=== PATIENT | female | born 1960 | race Caucasian/White ===

== ENCOUNTER → 2018-02-06 15:55 | Outpatient (CLI) | payer OTHER, SELFPAY ==
--- NOTE | 2018-02-06 16:06 | DI.REPORT_ITS ---
SYMPTOMS/DIAGNOSIS: KNEE PAIN, S83.207A, LIKELY MENISCAL TEAR, PLEASE RULE OUT A LOOSE BODY LEFT KNEE: There is perhaps subtle narrowing of the medial tibiofemoral joint compartment. There is mild hypertrophic spurring involving the patella and a small spur is identified at the insertion of the quadriceps on the superior patellar pole. There is no evidence of a loose joint body. SUMMARY: Mild degenerative changes are identified.
== END ==
PROVIDERS: PCP Nurse Practitioner; Visit Provider Family Medicine
DX: M25.562 Pain in left knee (principal); S83.207A Unspecified tear of unspecified meniscus, current injury, left knee, initial encounter; M17.12 Unilateral primary osteoarthritis, left knee; M76.52 Patellar tendinitis, left knee
CPT/HCPCS: 73562

== ENCOUNTER 2018-02-26 15:33 | Outpatient (RCR) | payer OTHER, SELFPAY ==
--- NOTE | 2018-02-26 13:06 | IE_ITS ---
Date: February 26, 2018 Referring: Dr. Angélica Heaton Diagnosis: Acute L medial meniscal tear P.T. Diagnosis: Same SUBJECTIVE: History of Present Illness: Melissa presents with complaints of insidious onset L knee pain. She states that she does a great deal of running and walking on the [address] at [facility].She had been performing her normal routine, when she noticed significant swelling developing in the L knee about 5 weeks ago. She is unable to identify any immediate injury or exacerbating event;however, states that she had severe swelling extending down to the level of the ankle. She saw her drAditi and began wearing a compression stocking and a knee brace, after which her swelling improved. She continues to have pain and clicking in the knee, as well as a small amount of swelling. She reports pain with any amount of twisting to the knee or fully straightening it. She does describe a sensation of the knee locking and feels as though she cant trust it. Pain Ratin/10 Pain Location: Medial joint line extending to the anterior L knee. Prior Level of Function: Active and independent. Pt performs a run/walk program several days/week up [facility]. She also has a strengthening regimen she performs with this including squats and LE strengthening. She mountain bikes , skis, etc...She works full-time as an R.N./food consultant. Current Level of Function: Pt has been self limiting her activity, stating that she is afraid she will irritate the knee.She is no longer performing her walking and running program.She has been too nervous to try biking. She reports pain with prolonged walking. Reports an inability to squat down to the floor and struggles with going up and down stairs. Previous Treatment: Pt has been utilizing a brace and taking Motrin with some moderate relief. Comorbidities: Osteoporosis. Falls in the last year: __X__ No Reported hospitalizations in the last year - __X__ No Medications: Alendronate and calcium vitamin D. Quality of Life: __X__ Good Standardized Measures: LEFS score: __50% deficit__ OBJECTIVE: Posture: Pt has good upright posturing. She lacks about 10 degrees terminal knee extension on the L. With cues, she is able to demonstrate full knee extension, although with increase in pain. Gait: Shows mild antalgia with decreased stance time on the L as compared to the R. She does demonstrate protective positioning of the LLE with bed mobility , avoiding full knee extension. In sitting position, she rests with the knee slightly extended. Edema: Pt has a mild joint effusion noted on the L and positive Otero's cyst. ROM: Hip ROM full and pain free L knee actively allows -5 to 125 degrees flexion; with overpressure, she tolerates 0-135 with end range pain into both flexion and extension. With passive motion, she has palpable clunking in the knee, which is pain reproducing. Joint Accessory Motion: Patellar mobility WNL. Tibiofemoral joint mobility shows mild hypomobility. Strength: Hip flexion 5/5 bilaterally Quads 5/5 R, 4/5 L with visible atrophy noted through the quadriceps. Hamstrings 4+/5 R, 4/5 L Hip IR 4/5 L ER 4/5 L Neuro: Dermatomes and myotomes WNL. DTRs not assessed. Balance: Pt requires UE support for single leg standing on the L. She is able to do so without support on the R. Special Tests: Pt has a positive Thessaly test on the L for pain reproduction.She is functionally unable to return to standing position from a deep squat without UE support. She has negative varus and valgus stress test. Negative anterior drawer. Positive Venu test for audible clunk and pain reproduction. Treatment: Today's session consisted of evaluation followed by instruction in an early HEP as found in scanned documents. Pt also received kinesio taping to the L knee for edema management and proprioceptive input. IE: [id number] Direct treatment time: 60 min Total treatment time: 60 min ASSESSMENT: Patient is a 57-year-old female, referred for PT services with the diagnosis of L medial meniscal tear. Patient presents with clinical signs and symptoms consistent with diagnosis with persistent L knee pain and joint effusion with suspected internal derangement. She has made significant gains since onset of pain with improved management of edema and improvements in comfort.She does, however, demonstrate quad atrophy and functional weakness, resulting from persistent symptoms. She requires PT intervention to address these issues and maximize mobility; however, if symptoms aren't improving over the next several weeks, will likely recommend orthopaedic consult at that time. Pt would like to avoid this if, at all, possible. She currently demonstrates the following impairment level findings: decreased LLE strength, quad atrophy, joint effusion , joint hypomobility, pain. Impairments are contributing to the following functional limitations: unable to perform normal exercise program, unable to squat to the floor for normal household activities, difficulty tolerating prolonged ambulation, pain with stair management, decreased overall LE function as indicated LEFS score of 50% deficit. Patient is assessed as: __X__ Moderate 95747 complexity, based on the following : History: (list): Insidious onset knee pain with suspected internal derangement in otherwise healthy and active 57 yo female with history of osteoporosis. Examination: (list): X See above for functional limitations and impairments. Presentation: X Evolving Decision-Making: X Moderate complexity 50 % Disability based on LEFS __X__ Patient requires skilled PT intervention to remediate the above functional limitations to return to: __X__ Premorbid level of function __X__ Return to full functional mobility __X__ Return to work demands __X__ Improve QOL Prognosis: __X__ Good STG: __6__ weeks. 1. Full ROM L knee. 2. Full terminal knee extension, allowing for non-antalgic gait. 3. Pt able to tolerate introduction of open and closed chain stretching activities without exacerbation of symptoms. LTG: __12__ weeks. 1. Pt able to resume her normal exercise program. 2. Pt able to reciprocally ascend and descend stairs without pain. 3. Improve overall function as indicated by LEFS score indicating less than 20% deficit. PLAN: Patient to be seen 1 x per week, for 12 weeks, adjusting frequency of visits per patient symptoms and response to treatment. Program will be primarily therapeutic exercise based for improved LE strength to better support the L knee. She will be instructed in both open and closed strengthening activities and will begin incorporating proprioceptive retraining activities as she is able to tolerate. Will include manual therapies, particularly for management of swelling and improved joint mobility to include joint mobilizations to the tibiofemoral and patellofemoral joints. Use of IASTM for neuromodulation for surrounding musculature and continued use of kinesio taping techniques. Thank you for this referral. Please do not hesitate to contact me with any questions or concerns regarding this patient's plan of care. SS/fw
== END 2018-02-28 23:59 | disposition home or self-care (01) ==
LOC: PT 15:33
PROVIDERS: Referring Provider Family Medicine; Visit Provider Family Medicine
DX: S83.242D Other tear of medial meniscus, current injury, left knee, subsequent encounter (principal)
CPT/HCPCS: 97162

== ENCOUNTER 2018-11-28 01:20 | Outpatient (CLI) | payer OTHER, SELFPAY ==
--- NOTE | 2018-11-28 07:30 | DI.MAMMO_ITS ---
SYMPTOM/DIAGNOSIS: SCREENING MAMMOGRAMS: Mammograms were interpreted according to the usual protocol including computer analysis with CAD system, tomosynthesis and C view imaging. Comparison is made with prior examinations. Breast density, Category D. No suspicious masses or microcalcifications are seen. There is no definite evidence of malignancy. IMPRESSION: Negative mammogram. Routine screening is recommended. Category 1. MQSA ASSESSMENT OF FINDINGS: Negative. Category 1. Patient will receive a letter notifying them of these results. BI-RADS category D. The breasts are extremely dense, which lowers the sensitivity of mammography.
== END 2018-11-28 01:40 ==
PROVIDERS: PCP Family Medicine; Visit Provider Nurse Practitioner Family
DX: Z12.31 Encounter for screening mammogram for malignant neoplasm of breast (principal)
CPT/HCPCS: 77063; 77067

== ENCOUNTER 2019-05-06 09:53 | Outpatient (CLI) | payer OTHER, SELFPAY ==
--- NOTE | 2019-05-06 14:56 | DI.MAMMO_ITS ---
EXAM: MG MAMMO DIAGNOSTIC UNI AND US BREAST RT LIMITED CLINICAL HISTORY: TENDER RIGHT BREAST LUMP, N63.10 TECHNIQUE: Ultrasound performed using standard protocol. COMPARISON: 11/28/18, 08/12/17, 07/04/16 FINDINGS: Right breast mammogram and right breast ultrasound are interpreted conjunction. These examinations w ere obtained to evaluate a question of palpable abnormality of the upper inner quadrant of the right breast. Breast is of high density. No discrete mass identified mammographically. No ultrasonograph ically identified mass or cyst. IMPRESSION: No specific evidence of malignancy at this time. I have suggested routine screening examinations resu me with a bilateral mammogram in October 2019. Category 1, breast density category D. BI-RADS Cat 1 - Negative Breast Density - Category D - Extremely dense
== END 2019-05-06 10:13 ==
PROVIDERS: PCP Family Medicine; Visit Provider Nurse Practitioner Family
DX: N63.12 Unspecified lump in the right breast, upper inner quadrant (principal)
CPT/HCPCS: 76642; 77061; 77065; G0279

== ENCOUNTER 2019-09-17 15:20 | Outpatient (REF) | payer OTHER, SELFPAY ==
--- NOTE | 2019-09-17 15:00 | ENDOMET_PTH ---
PATIENT: Melissa North LOC: [facility] U#:[id number] AGE/SX: 59/F ROOM: RE09/17/[address]: Carin Akins : 1960 BED: DIS: 09/17/2019 SPEC #: [id number] RECD: 09/17/19 17:15 STATUS: YOLANDA REQ #: [id number] INES: 09/17/19 15:[address]: Carin Akins DEPT: Surgical Specimen RECD BY: Sheila Pino ENTERED: 09/17/19 17:16 SP TYPE: Endomet OTHR DR: Mike Lindsay DO Tissues: 1 - ENDOMETRIUM BX/CURRETTE Procedures: GROSS AND MICRO LEVEL 4 Comments: [id number]
== END 2019-09-17 15:40 ==
LOC: LBN 15:20
PROVIDERS: PCP Family Medicine; Visit Provider Obstetrics & Gynecology Gynecology
DX: N80.1 Endometriosis of ovary (principal); N95.0 Postmenopausal bleeding
CPT/HCPCS: 88305

== ENCOUNTER 2019-10-20 00:44 | Outpatient (CLI) | payer OTHER, SELFPAY ==
--- NOTE | 2019-10-20 07:30 | DI.DEXA_ITS ---
EXAM: XR DEXA BONE DENSITY W/WO PENELOPE CLINICAL HISTORY: on HRT and Bisphosphonates,osteoporosis, m81.0 TECHNIQUE: [employer] C densitometer was utilized. COMPARISON: 2012 and 2015 FINDINGS: The PENELOPE image shows no evidence of compression fractures. The bone mineral density measurements of the lumbar spine correspond to a total T-score of -1.6, in the osteopenic range. This is not signif icantly changed from 2016 and represents a 9..0 percent increase when compared with 2013. 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 This represents an 8 percent decrease when compared with 201 6 but is not changed from 2013. The bone mineral density measurements of the left forearm correspond to a total T-score of -2.6 and a T-score of the distal 3rd of -1.8, in the osteopenic range. This r epresents a 5.9 percent decrease when compared with 2016 and a 4.5 percent decrease when compared wit h 2013. IMPRESSION: Osteopenia of the lumbar spine and left forearm. Osteoporosis of the left hip.
== END 2019-10-20 01:04 ==
PROVIDERS: PCP Family Medicine; Visit Provider Obstetrics & Gynecology Gynecology
DX: M81.0 Age-related osteoporosis without current pathological fracture (principal); M85.88 Other specified disorders of bone density and structure, other site
CPT/HCPCS: 77080

== ENCOUNTER 2020-01-19 01:16 | Outpatient (CLI) | payer OTHER, SELFPAY ==
--- NOTE | 2020-01-19 13:45 | DI.MAMMO_ITS ---
EXAM: MG MAMMO SCREENING CLINICAL HISTORY: screening,Z12.39 TECHNIQUE: Bilateral full field digital CC and MLO mammographic images were obtained with 3D tomosyn thesis and utilizing computer aided detection (CAD). COMPARISON: Available for comparison. FINDINGS: Masses/Architectural Distortion: None seen. Microcalcifications: No suspicious pleomorphic-type are seen. Skin Thickening/Nipple Retraction: None. IMPRESSION: 1. No significant interval change with no specific features of malignancy noted. 2. Unless there is more urgent need, screening mammography is recommended, as per [employer] guidelines. BI-RADS Category 1 - Negative Breast Density - Category D - Extremely dense The mammogram demonstrates the patient's breast tissue is dense. Dense breast tissue is very common a nd is not abnormal but dense breast tissue can make it harder to find cancer on a mammogram. Also, de nse breast tissue may increase their breast cancer risk. This information about the result of the [facility] mogram report was provided to the patient to raise their awareness. Use this report when you speak wi th the patient about their risks for breast cancer, which includes their family history. At that time , you may recommend for more screening tests (Ultrasound or MRI) as they might be useful based on the ir risk. A negative radiographic report should not delay biopsy if a dominant or clinically suspicious mass is present. Up to ten percent of cancers are not identified on mammography. A negative report may reinforce clinical impression. Adenosis and dense breasts may obscure an underlying neoplasm. False positive reports average 6 to 10%. Patient will receive a letter notifying them of these results.
== END 2020-01-19 01:36 ==
PROVIDERS: PCP Family Medicine; Visit Provider Obstetrics & Gynecology Gynecology
DX: Z12.31 Encounter for screening mammogram for malignant neoplasm of breast (principal)
CPT/HCPCS: 77063; 77067

== ENCOUNTER 2020-01-26 03:31 | Outpatient (CLI) | payer OTHER, SELFPAY ==
[2020-01-27 11:12] LABS: Measles IgG Antibody Positive (See Note); Mumps Antibody IgG Positive (See Note); Rubella IgG Ab (UVM) Positive (See Note); Varicella IgG Antibody Positive (See Note)
== END 2020-01-26 03:51 ==
PROVIDERS: PCP Family Medicine; Visit Provider Family Medicine
DX: Z02.89 Encounter for other administrative examinations (principal)
CPT/HCPCS: 36415; 86787; 86735; 86762; 86765

== ENCOUNTER 2020-09-14 17:43 | Outpatient (REF) | payer OTHER, SELFPAY ==
--- NOTE | 2020-09-14 16:00 | PAPFT_PTH ---
PATIENT: Melissa North LOC: [facility] U#:[id number] AGE/SX: 60/F ROOM: RE09/14/[address]: Linnette Terrazas NP : 1960 BED: DIS: 09/14/2020 SPEC #: [id number] RECD: 09/14/20 18:17 STATUS: YOLANDA REQ #: [id number] INES: 09/14/20 16:[address]: Mk MCNEIL,Linnette DEPT: [facility] Cytology RECD BY: Sheila Pino ENTERED: 09/14/20 18:17 SP TYPE: PAPFT OTHR DR: Mike Lindsay, DO Tissues: 1 - CX/ENDOCX FOR PAP SMEARS Procedures: PAP THIN PREP/UVM Screening HPV DNA PROBE Comments: [id number] (CHLAMYDIA/GC)
[2020-09-15 13:58] LABS: Chlamydia Result Negative (Negative); GC Result Negative (Negative)
== END 2020-09-14 17:44 | disposition home or self-care (01) ==
LOC: LBN 17:43
PROVIDERS: PCP Family Medicine; Visit Provider Nurse Practitioner Women's Health
DX: Z11.3 Encounter for screening for infections with a predominantly sexual mode of transmission (principal); Z12.4 Encounter for screening for malignant neoplasm of cervix; Z11.51 Encounter for screening for human papillomavirus (HPV)
CPT/HCPCS: 87491; 87591; 88142; 87624

== ENCOUNTER 2020-09-16 05:03 | Outpatient (CLI) | payer OTHER, SELFPAY ==
--- NOTE | 2020-09-16 08:45 | DI.US_ITS ---
EXAM: US ABDOMEN CLINICAL HISTORY: Evaluate for biliary pathology,ABD PAIN,R10.9 TECHNIQUE: Ultrasound abdomen performed using standard protocol. COMPARISON: No exams were available for comparison FINDINGS: LIVER: Normal size and echogenicity. A cyst is noted in the right lobe measuring 15 millimeters in d iameter. No suspicious masses... GALLBLADDER: No evidence of cholelithiasis. No evidence of wall thickening. No pericholecystic fluid identified. LYONS'S SIGN: Negative. BILIARY SYSTEM: No intrahepatic or extrahepatic biliary ductal dilation. KIDNEYS: Kidneys are symmetric in size. No evidence of renal calculi. No evidence of hydronephrosis. No renal mass or cyst identified. PANCREAS: Normal where visualized. SPLEEN: Not enlarged. ABDOMINAL AORTA AND IVC: Visualized portions normal caliber. ASCITES: None seen. IMPRESSION: Liver cyst. No gallbladder or biliary abnormality. DATA REPOSITORY:
== END 2020-09-16 05:23 ==
PROVIDERS: PCP Family Medicine; Visit Provider Family Medicine
DX: K76.89 Other specified diseases of liver (principal)
CPT/HCPCS: 76700

== ENCOUNTER 2021-02-06 10:26 | Day surgery (SDC) | payer OTHER, SELFPAY ==
--- NOTE | 2021-02-06 06:58 | COLE_ITS ---
Date of service: 02/06/21 Time of Service: 11:41 Colonoscopy Report Date of procedure: 02/06/21 Pre-op diagnosis general: Hx of colon polyps Post-op diagnosis procedure note: same (polyp) Procedure: Colonoscopy with polypectomy Surgeon: Abi Arroyo Anesthesia Type: General:No Airway (ASA 2/Dipesh Shipman CRNA) Estimated blood loss (mL): 2 Pathology: other (sigmoid polyp) Complications: None Disposition: same day Indications: The patient is here for Colonoscopy pre-op. Her last screening was in 2014 and was remarkable for tubular adenomatous polyps. She has no family history of colon cancer. She has not had any bowel habit changes. -Discussed colonoscopy bowel prep as well as the procedure. Discussed possible complications of the procedure to include bleeding, pain, perforation, missed small lesion/polyp, sore throat, aspiration and adverse reaction to the medications. Questions were answered to patient?s satisfaction. No guarantees were implied or given. She will purchase the bowel prep laxatives from the [employer] shop. She will hold her Vitamin D x 5 days prior to her procedure. Prep: Miralax/Dulcolax Procedure Start Time: 11:41 Procedure End Time: 12:00 Retraction Time: 13 minutes Findings: one small polyp Procedure Description: After informed consent was obtained the patient was taken to the procedure room and placed in a left decubitous position. Monitors were applied and a time out was done. The patients name, date of , procedure, allergies to medications and metal in their body was reviewed. The patient was then sedated. Once sedated and comfortable a rectal exam was done. External exam was normal. Internal exam revealed a normal sphincter tone and no palpable masses. The scope was then introduced and retro-flexed. No internal hemorrhoids, polyps or masses were identified on retro-flexion. The scope was then advanced to the cecum without difficulty. The ileocecal vlave and appendiceal orifice were identified. The prep was good. The scope was then slowly retracted over 13 min utes back into the rectum. Polyps were removed with cold forceps in the sigmoid colon. There was no diverticulosis noted. The scope was removed and the patient was woken up and taken back to Same day surgery in stable condition. The patient tolerated the procedure well and there were no immediate complications. Follow up: The patient should follow up in 5 years unless they develop changes in bowel habits or other new gastrointestinal complaints.
--- NOTE | 2021-02-06 07:01 | W.PM.DSUDISC ---
Discharge Plan Disposition Patient Disposition: HOME Condition: Good Discharge Details Reason For Visit: SCREENING,HX OF POLYPS Attending Provider: Abi Arroyo Primary Care Provider: Mike Lindsay Home Meds and New Rx's Prescriptions: Continued Estring 2 mg (7.5 mcg /24 hour) ring 1 vag ring VG 90 DAYS Qty: 1 RF: 3 estradiol-norethindrone acet 0.05-0.25 mg/24 hr patch semiweekly 1 patch TD .COMPLEX Qty: 8 RF: 5 cholecalciferol (vitamin D3) 1,000 UNIT tablet 1,000 unit PO DAILY RF: 0 calcium carbonate 600 MG tablet 1,200 mg PO DAILY RF: 0 alendronate 35 mg tablet 35 mg PO QWEEK Qty: 16 RF: 4 Discharge Instructions Additional Instructions: Findings: one small polyp Follow up: 5 years Please call if you develop: fevers >101.5 Nausea or Vomiting Abdominal pain that is not transient Rectal bleeding that is more then a tbsp A hard abdomen and inability to pass gas DAY SURGERY UNIT POST ENDOSCOPY INSTRUCTIONS Instructions for everyone who is given Anesthesia: For your safety, please do the following for the next 24 Hours: a. Do not drive or operate dangerous equipment b. Do not drink alcohol beverages or use any recreational drugs for the first 24 hours or while taking pain medications. The medications in your body may have a reaction that can be dangerous. c. Do not make any important decisions or sign any important papers 1. Generally there are no restrictions on your activity after a day or so has gone by, but you may feel a bit fatigued for a few days. 2. After you arrive home you may have a light meal and return to a normal diet as you can tolerate it without feeling sick to your stomach. 3. After surgery, you may feel pain or discomfort. This should be only transient, but if it persists please contact your doctor. 4. If there are any questions regarding the findings of your procedure, please feel free to contact your doctor. 6. If you are unable to contact your doctor with a problem, contact the hospital at [phone]. 7. Continue all your regular medications unless directed otherwise. I understand the above instructions and have no questions. Signature of Patient or Responsible Adult Escort Date/Time Name of Responsible Adult Escort Signature of Nurse Date/Time Activity:: Activity as Tolerated Diet:: As Tolerated Discharge Orders Discharge Orders: Discharge Order (Routine); Ordered 02/06/21 Ordered By: Abi Arroyo
[2021-02-06 10:34] VITALS: BP 126/76; PULSE 67; RESP 18; TEMP 36.4; O2SAT 100
[2021-02-06] MEDS: Lactated Ringers 1,000 ML 80 ML IV (10:55)
--- NOTE | 2021-02-06 10:56 | W.ANESPRE ---
General Info Date of Service Date Performed: 02/06/21 Height: 5 ft 4 in Weight: 53.5 kg Body Mass Index (BMI): 20.2 Surgical Procedure: Operation Date: 02/06/21 12:05 Proposed Procedures Side Surgeon p Colonoscopy Abi Arroyo MD Meds Allergies and Home Medications Allergies Allergy/AdvReac Type Severity Reaction Status Date / Time No Known Drug Allergies Allergy Verified 02/06/21 10:38 Home Medication Medication Instructions Recorded cholecalciferol (vitamin D3) 1,000 unit PO DAILY 12/10/13 calcium carbonate 1,200 mg PO DAILY 02/06/18 estradiol 1 vag ring VG 90 DAYS #1 each 09/14/20 estradiol 0.05 mg-norethindrone 1 patch TD .COMPLEX #8 each 09/14/20 0.25 mg/24 hr semiwkly transderm patch alendronate 35 mg tablet 35 mg PO QWEEK #16 tab 01/31/21 Current Visit Medications: Current Medications Generic Name Dose Route Start Last Admin Trade Name Freq PRN Reason Stop Dose Admin Hyoscyamine Sulfate 0.125 mg 02/06/21 07:02 Hyoscyamine 0.125 Mg Sl/Oral/Chew SL DIRECTED PRN Ringer's Solution 1,000 mls @ 80 mls/hr 02/06/21 06:00 02/06/21 10:55 IV 03/05/21 23:59 80 mls/hr INFUSION MAGUI Administration IV Miscellaneous Supplies 1 each 02/06/21 06:00 Iv Access IV 03/05/21 23:59 DIRECTED MAGUI Ondansetron HCl 4 mg 02/06/21 07:02 Ondansetron 4 Mg/2 Ml Vial IVP Q4H PRN PRN Nausea / Vomiting Sodium Chloride 0 ml 02/06/21 06:00 Normal Saline Flush 10 Ml Syr IV 03/05/21 23:59 PRN PRN Sodium Chloride 0 ml 02/06/21 06:00 Normal Saline 10 Ml Vial IJ 03/05/21 23:59 DIRECTED PRN Sterile Water 0 ml 02/06/21 06:00 Water,Injection,Sterile 10 Ml Vial IJ 03/05/21 23:59 DIRECTED PRN PFSH Active Problems Active Problems: Problem Status Onset Code Tubular adenoma of colon 07/09/14 D12.6 Osteoporosis 08/28/14 M81.0 Hormone replacement therapy 10/26/15 Z79.890 Retinal detachment H33.20 Vitreous degeneration, bilateral H43.813 Screening for colon cancer Z12.11 Postmenopausal bleeding Medical History Medical History Closed nondisplaced fracture of greater tuberosity of left humerus (04/06/16) Depressive disorder (02/16/13) Detached retina, bilateral Hormone replacement therapy started 05/2015 for osteoporosis. Pt intol of Aledronate. 09/2015 PMB despite dose adjustment. EMBx nl. Osteoporosis 2012 Pt had course ofAledronate, 05/2015. started HRT 2015 femoral neck T -2.6, spine T -1.5, L hip -2.4. 12/2015 Boniva initiated. Postmenopausal bleeding 09/17/2019 & 08/2015 while on HRT. No improvement with dose change. 08/2019 and 09/2015 EMBx proliferative. Benign. Tobacco Smoking/Tobacco Use Status: Never Alcohol Alcohol Intake: current Alcohol intake frequency: 0-2 drinks per day Alcohol type: beer Substance Use Substance use: Never Substance use type: does not use Prental History History 3 Para 2 Hx # Term Pregnancies Multiple births Hx # Pregnancies Ectopic pregnancies AB induced Hx Number of Living Children AB spontaneous Vital Signs and Lab Results Vital Signs Most Recent Vital Signs in EMR: Most Recent Vital Signs Temp Pulse Resp BP Pulse Ox 36.4 C L 67 18 126/76 100 02/06/21 10:34 02/06/21 10:34 02/06/21 10:34 02/06/21 10:34 02/06/21 10:34 Lab Results Blood Type / Crossmatch: No Data to Display Complete Blood Count: No Data to Display Complete Metabolic Panel: No Data to Display Liver Function Panel: No Data to Display Coagulation Panel: No Data to Display Cardiac Panel: No Data to Display Arterial Blood Gas: No Data to Display Venous Blood Gas: No Data to Display Pancreas Panel: No Data to Display Thyroid Panel: No Data to Display Infectious Disease: No Data to Display Blood Cultures: No Data to Display Toxicology Panel: No Data to Display Anesthesia Assessment and Plan Anesthesia History Personal History: No History of Anesthesia Complications Family History: No Family History of Anesthesia Complications Exercise Tolerance Exercise Tolerance: Metabolic Equivalents>4 Pertinent Negatives Pertinent Negatives: No Symptoms of GERD, No Major Cardiovascular Symptoms or Complaints and No Major Pulmonary Symptoms or Complaints Cardiac & Pulmonary Exam Cardiac Exam: Normal S1/S2 Heart Sounds Pulmonary Exam: Clear Bilateral Breath Sounds Airway Exam Known Difficult Airway: No Mallampati Class: 2 Mouth Opening: Normal (> 3cm) Thyromental Distance: Greater than 3 cm Neck Range of Motion: Full ROM Neck Circumference: Normal Teeth Condition: Normal Dentition ASA Classification ASA Score: ASA 2 Emergency Case?: No NPO Status NPO Status: NPO Clears >2 hours, Solids >8 hours Anesthesia Plan Resuscitation Status: Full Code Anesthesia Technique: General Anesthesia Airway Planned: Natural Airway Monitors Used: Standard Monitors
[2021-02-06 11:00] VITALS: BMI 20.2
--- NOTE | 2021-02-06 11:59 | BOWEL_PTH ---
PATIENT: Melissa North LOC: [facility] U#:[id number] AGE/SX: 60/F ROOM: RE02/06/[address]: Abi Arroyo MD : [id number] BED: DIS: 02/06/2021 SPEC #: [id number] RECD: 02/06/21 12:58 STATUS: YOLANDA REQ #: [id number] INES: 02/06/21 11:[address]: Abi Arroyo DEPT: Surgical Specimen RECD BY: Sheila Pino ENTERED: 02/06/21 12:58 SP TYPE: Bowel OTHR DR: Mike Lindsay DO Tissues: 1 - BIOPSY BOWEL Procedures: GROSS AND MICRO LEVEL 4 Comments: [id number]
[2021-02-06 12:07] VITALS: BP 110/63; PULSE 66; RESP 14; TEMP 36.4; O2SAT 97
--- NOTE | 2021-02-06 12:29 | W.ANESPOSTOP ---
Postoperative Evaluation Date, Time and Location Date Performed: 02/06/21 Time Performed: 12:10 Patient Location: Day Surgery Unit Vital Signs Most Recent Imported Vital Signs: Most Recent Vital Signs Temp Pulse Resp BP Pulse Ox 36.4 C L 66 14 110/63 97 02/06/21 12:07 02/06/21 12:07 02/06/21 12:07 02/06/21 12:07 02/06/21 12:07 Pain Score Most Recent Pain Score: Most Recent Pain Score Pain Level 0 02/06/21 12:07 Assessment Mental Status: Awake (Alert & Oriented to Patient Baseline) Airway and Respiratory Function: Patent airway with normal (patient baseline) respiratory exam Cardiovascular Function: Hemodynamically Stable Hydration Status: Adequately Hydrated Nausea & Vomiting: No Nausea or Vomiting Pain: Pt. Denies Any Pain Peripheral Nerve Block: Patient did not receive a nerve block
[2021-02-06 12:36] VITALS: BP 115/77; PULSE 57; RESP 16; TEMP 36.4; O2SAT 98
== END 2021-02-06 13:05 | disposition home or self-care (01) ==
LOC: SUR 10:26
PROVIDERS: PCP Family Medicine; Visit Provider Surgery
PROC: 0DJD8ZZ Inspection of Lower Intestinal Tract, Via Natural or Artificial Opening Endoscopic (ICD-10-PCS; CPT 45378; principal; 2021-02-06 12:00)
DX: Z12.11 Encounter for screening for malignant neoplasm of colon (principal); Z80.0 Family history of malignant neoplasm of digestive organs; K63.5 Polyp of colon
CPT/HCPCS: 45380; 88305; J2001

== ENCOUNTER 2021-02-08 02:25 | Outpatient (CLI) | payer OTHER, SELFPAY ==
--- NOTE | 2021-02-08 06:48 | DI.MAMMO_ITS ---
Exam(s) MAMMO SCREENING EXAM: MAMMO SCREENING CLINICAL HISTORY: screening,Z12,39. TECHNIQUE: Bilateral full field digital CC and MLO mammographic images were obtained with 3D tomosyn thesis and utilizing computer aided detection (CAD). COMPARISON: 2011 through 2019 FINDINGS: Masses/Architectural Distortion: None seen. Microcalcifications: No suspicious pleomorphic-type are seen. Skin Thickening/Nipple Retraction: None. IMPRESSION: 1. No significant interval change with no specific features of malignancy noted. 2. Unless there is more urgent need, annual screening mammography is recommended, as per [place] [employer] guidelines. BI-RADS Category 1-negative Breast Density - Category D - extremely dense Breast Density Category D: The mammogram demonstrates the patient's breast tissue is dense. Dense semaj ast tissue is very common and is not abnormal but dense breast tissue can make it harder to find canc er on a mammogram. Also, dense breast tissue may increase their breast cancer risk. This information about the result of the mammogram report was provided to the patient to raise their awareness. Use th is report when you speak with the patient about their risks for breast cancer, which includes their f amily history. At that time, you may recommend for more screening tests (Ultrasound or MRI) as they m ight be useful based on their risk. A negative radiographic report should not delay biopsy if a dominant or clinically suspicious mass is present. Up to ten percent of cancers are not identified on mammography. A negative report may reinforce clinical impression. Adenosis and dense breasts may obscure an underlying neoplasm. False positive reports average 6 to 10%.
== END 2021-02-08 02:45 ==
PROVIDERS: PCP Family Medicine; Visit Provider Nurse Practitioner Women's Health
DX: Z12.31 Encounter for screening mammogram for malignant neoplasm of breast (principal); R92.8 Other abnormal and inconclusive findings on diagnostic imaging of breast
CPT/HCPCS: 77063; 77067

== ENCOUNTER 2021-04-03 08:12 | Outpatient (REF) | payer OTHER, SELFPAY ==
[2021-04-04 19:45] LABS: COVID-19 RT-PCR UVMMC Result Negative (Negative)
== END 2021-04-03 08:13 | disposition home or self-care (01) ==
LOC: LBO 08:12
PROVIDERS: PCP Nurse Practitioner Adult Health; Visit Provider Nurse Practitioner Family
DX: Z20.822 Contact with and (suspected) exposure to COVID-19 (principal)
CPT/HCPCS: U0003

== ENCOUNTER 2021-07-10 18:13 | Outpatient (REF) | payer SELFPAY ==
[2021-07-11 01:44] LABS: COVID-19 RT-PCR UVMMC Result Negative (Negative)
== END 2021-07-10 18:14 | disposition home or self-care (01) ==
LOC: BCD 18:13
PROVIDERS: Family Medicine; PCP Nurse Practitioner Adult Health
DX: Z20.822 Contact with and (suspected) exposure to COVID-19 (principal); Z03.818 Encounter for observation for suspected exposure to other biological agents ruled out
CPT/HCPCS: U0003

== ENCOUNTER 2021-07-23 15:40 | Outpatient (REF) | payer OTHER, SELFPAY ==
[2021-07-23 15:34] LABS: Source Nasal/Nares
[2021-07-23 22:40] LABS: COVID-19 PCR Negative (Negative)
== END 2021-07-23 15:41 | disposition home or self-care (01) ==
LOC: LBN 15:40
PROVIDERS: PCP Nurse Practitioner Adult Health; Visit Provider Family Medicine
DX: Z20.822 Contact with and (suspected) exposure to COVID-19 (principal)
CPT/HCPCS: 87635

== ENCOUNTER 2021-08-21 02:48 | Outpatient (CLI) | payer OTHER, SELFPAY ==
[2021-08-21 08:12] LABS: Abs Immature Grans 0.01 10^3/uL (0.0-0.06); Absolute Basophil Count 0.02 10^3/uL (0.0-0.2); Absolute Eosinophil Count 0.14 10^3/uL (0.0-0.7); Absolute Monocyte Count 0.64 10^3/uL (0.1-0.8); Absolute Neutrophil Count 4.17 10^3/uL (1.2-6.7); Basophils % 0.3; Eosinophils % 2.1; HCT 43.7 % (36.0-46.0); HGB 14.3 g/dL (11.2-15.7); Immature Grans % 0.1; Lymphocytes % 26.5; MCHC 32.7 % (32.0-36.0); MCV 88.6 fL (80-95); MPV 9.4 fL (8.0-11.0); Monocytes % 9.4; Neutrophils % 61.6; Nucleated RBC 0 %; Platelet Count 270 10^3/uL (130-400); RBC 4.93 10^6/uL (3.93-5.22); RDW-SD 39.1 fL; WBC 6.78 10^3/uL (4.4-10.8)
[2021-08-21 08:41] LABS: ALT 26 U/L (14-59); AST 18 U/L (15-37); Albumin 4.1 g/dL (3.4-5.0); Alkaline Phosphatase 72 U/L (46-116); Anion Gap 7.9 mmol/L (3-11); BUN 15 mg/dL (7-18); Bilirubin, Total 0.5 mg/dL (0.2-1.0); CO2 28.1 mmol/L (21.0-32.0); CREATININE 0.6 mg/dL (0.55-1.02); Calcium 9.1 mg/dL (8.5-10.1); Calculated LDL 108 mg/dL (<100); Chloride 103 mmol/L (98-107); Cholesterol 210 mg/dL (<200); Glucose 91 mg/dL (74-106); HDL Cholesterol 93 mg/dL (40-60); Potassium 4.2 mmol/L (3.5-5.1); Sodium 139 mmol/L (136-145); TSH (W/Ref FT4) 3.32 uIU/mL (0.36-3.74); Triglyceride 48 mg/dL (<150)
[2021-08-21 17:42] LABS: Vitamin D 25 Total 20.1 ng/mL (30-100)
[2021-08-22 10:30] LABS: Parathyroid Hormone,Intact 82 pg/mL (19-88)
[2021-08-22 10:57] LABS: Hepatitis C Ab w Rflx HCV PCR Negative (Negative)
[2021-08-22 11:09] LABS: HIV-1/2 Ag & Ab Screen Negative (Negative)
[2021-08-23 16:10] LABS: Beta-CrossLaps (B-CTx) 171 pg/mL
== END 2021-08-21 02:49 | disposition home or self-care (01) ==
LOC: LBO 02:48
PROVIDERS: PCP Nurse Practitioner Adult Health; Visit Provider Internal Medicine
DX: M81.0 Age-related osteoporosis without current pathological fracture (principal); Z11.4 Encounter for screening for human immunodeficiency virus [HIV]; Z11.59 Encounter for screening for other viral diseases; Z13.1 Encounter for screening for diabetes mellitus; Z13.220 Encounter for screening for lipoid disorders
CPT/HCPCS: 36415; 80053; 80061; 82306; 82523; 86803; 87389; 83970; 84100; 84443; 85025

== ENCOUNTER 2021-09-25 09:50 | Outpatient (REF) | payer OTHER, SELFPAY ==
[2021-09-25 14:43] LABS: Creatinine,Urine 41.95 mg/dL
[2021-09-25 14:44] LABS: Creatinine,24hr Ur 0.84 g/24hr (0.60-1.80); Total Volume 2000 ml
[2021-09-26 09:46] LABS: Calcium Urine 12.1 mg/dL (See Note); Calcium Urine 24 hr 242 mg/24hrs (100-300); Timed Urine Volume 2000 mL
[2021-10-02 14:27] LABS: Creatinine, U 70 mg/dL; NTX 149 nmol/L; NTX-Telopedptide, U 24 nmol/mmol
== END 2021-09-25 09:51 | disposition home or self-care (01) ==
LOC: LBN 09:50
PROVIDERS: PCP Nurse Practitioner Adult Health; Visit Provider Internal Medicine
DX: M81.0 Age-related osteoporosis without current pathological fracture (principal)
CPT/HCPCS: 81050; 82340; 82523; 82570

== ENCOUNTER → 2021-11-24 00:53 | Outpatient (CLI) | payer OTHER, SELFPAY ==
--- NOTE | 2021-11-24 | DI.DEXA_ITS ---
Exam(s) XR DEXA BONE DENSITY W/WO PENELOPE EXAM: XR DEXA BONE DENSITY W/WO PENELOPE CLINICAL HISTORY: F/U OSTEOPOROSIS, UNSPECIFIED PATHOLOGICAL FRACTURE, M81.0 TECHNIQUE: Sequella C densitometer COMPARISON: CR XR DEXA BONE DENSITY W/WO PENELOPE from 2012, 2015 and 10/20/2019 FINDINGS: Lateral view of the thoracic and lumbar spine shows no evidence of compression fractures. Bone mineral density measurements of the lumbar spine correspond to a total T-score of -1.8, in the o steopenic range. This is not significantly changed from 2019 but represents a 6.5 percent increase c ompared with 2013. Bone mineral density measurements of the left hip correspond to a total T-score of -2.2. The femora l neck T-score is -2.4, consistent with osteopenia. This represents a 13.9 percent increase when co mpared with 2019 in a 13.3 percent increase when compared with 2013.. The left forearm bone mineral density measurements correspond to a T-score of the distal 3rd of -1.7 , consistent with osteopenia. No significant change from 2020. 3.7 percent decrease compared with 2 013.. IMPRESSION: Osteopenia of the lumbar spine and left hip with increases when compared with previous exams. Osteop enia of the left forearm with mild decrease in bone density compared with priors.
== END ==
PROVIDERS: PCP Nurse Practitioner Adult Health; Visit Provider Internal Medicine
DX: M81.0 Age-related osteoporosis without current pathological fracture (principal); M85.88 Other specified disorders of bone density and structure, other site
CPT/HCPCS: 77080

== ENCOUNTER 2022-04-10 16:15 | Outpatient (REF) | payer OTHER, SELFPAY ==
[2022-04-12 11:06] LABS: COVID-19 RT-PCR UVMMC Result Positive (Negative)
== END 2022-04-10 16:16 | disposition home or self-care (01) ==
LOC: LBN 16:15
PROVIDERS: PCP Nurse Practitioner Adult Health; Visit Provider Nurse Practitioner Adult Health
DX: Z20.822 Contact with and (suspected) exposure to COVID-19 (principal)
CPT/HCPCS: U0003

== ENCOUNTER → 2022-05-22 02:13 | Outpatient (CLI) | payer OTHER, SELFPAY ==
--- NOTE | 2022-05-22 10:12 | DI.MAMMO_ITS ---
Exam(s) MAMMO SCREENING EXAM: MAMMO SCREENING CLINICAL HISTORY: screening,Z12.39 TECHNIQUE: Bilateral full field digital CC and MLO mammographic images were obtained with 3D tomosyn thesis and utilizing computer aided detection (CAD). COMPARISON: Available for comparison. FINDINGS: Masses/Architectural Distortion: None seen. Microcalcifications: No suspicious pleomorphic-type are seen. Skin Thickening/Nipple Retraction: None. IMPRESSION: 1. No significant interval change with no specific features of malignancy noted. 2. Unless there is more urgent need, screening mammography is recommended, as per [place] [employer] guidelines. BI-RADS Category 1 - Negative Breast Density - Category D - Extremely dense Breast density category C or D implies that the patient has dense breast tissue. Dense breast tissue is very common and is not abnormal but dense breast tissue can make it harder to find cancer on a ma mmogram. Also, dense breast tissue may increase their breast cancer risk. This information about the result of the mammogram report was provided to the patient to raise their awareness. Use this report when you speak with the patient about their risks for breast cancer, which includes their family hist ory. At that time, you may recommend for more screening tests (Ultrasound or MRI) as they might be us eful based on their risk. A negative radiographic report should not delay biopsy if a dominant or clinically suspicious mass is present. Up to ten percent of cancers are not identified on mammography. A negative report may reinforce clinical impression. Adenosis and dense breasts may obscure an underlying neoplasm. False positive reports average 6 to 10%. Patient will receive a letter notifying them of these results.
== END ==
PROVIDERS: PCP Nurse Practitioner Adult Health; Visit Provider Nurse Practitioner Adult Health
DX: Z12.31 Encounter for screening mammogram for malignant neoplasm of breast (principal); R92.8 Other abnormal and inconclusive findings on diagnostic imaging of breast
CPT/HCPCS: 77063; 77067

== ENCOUNTER 2022-07-18 13:49 | Outpatient (CLI) | payer OTHER, SELFPAY ==
--- NOTE | 2022-07-18 14:21 | DI.RAD_ITS ---
Exam(s) XR HIP PELVIS ADULT BL EXAM: XR HIP PELVIS ADULT BL CLINICAL HISTORY: Hip pain L>R; assess bones for OA/DJD M25.559 PAIN HIP G89.29 CHRONIC PAIN. TECHNIQUE: 2D digital imaging was performed. COMPARISON: CR XR DEXA BONE DENSITY W/WO PENELOPE from 11/24/2021 FINDINGS: 3 views No evidence of pelvic nor hip fracture. No obvious degenerative narrowing of the hip joints. No ost eophytes. SI joints unremarkable. No osseous lesions in the pelvis. IMPRESSION: No significant osseous findings. DATA REPOSITORY: RADIATION DOSE DELIVERED:
== END 2022-07-18 14:09 ==
LOC: DI 13:49
PROVIDERS: PCP Nurse Practitioner Adult Health; Visit Provider Nurse Practitioner Adult Health
DX: M25.551 Pain in right hip (principal); M25.552 Pain in left hip; G89.29 Other chronic pain
CPT/HCPCS: 73521

== ENCOUNTER 2023-03-22 21:07 | Outpatient (REF) | payer OTHER, SELFPAY ==
[2023-03-24 11:59] LABS: HSV 1 DNA Result Negative (Negative); HSV 2 DNA Result Negative (Negative)
== END 2023-03-22 21:08 | disposition home or self-care (01) ==
LOC: LBN 21:07
PROVIDERS: PCP Nurse Practitioner Adult Health; Visit Provider Advanced Practice Midwife
DX: N94.89 Other specified conditions associated with female genital organs and menstrual cycle (principal)
CPT/HCPCS: 87529

== ENCOUNTER → 2024-01-09 00:43 | Outpatient (CLI) | payer OTHER, SELFPAY ==
--- NOTE | 2024-01-09 08:20 | DI.MAMMO_ITS ---
Exam(s) MAMMO SCREENING EXAM: MAMMO SCREENING CLINICAL HISTORY: screening, Z12.39. TECHNIQUE: Bilateral full field digital CC and MLO mammographic images were obtained with 3D tomosyn thesis and utilizing computer aided detection (CAD). COMPARISON: 2013 through 2021 FINDINGS: Masses: None seen. Architectural Distortion: None seen. Microcalcifications: No suspicious pleomorphic-type are seen. Skin Thickening/Nipple Retraction: None. IMPRESSION: 1. No significant interval change with no specific features of malignancy noted. 2. Unless there is more urgent need, annual screening mammography is recommended, as per [place] [employer] guidelines. BI-RADS Category 1-negative Breast Density - Category D - extremely dense Breast Density Category D: The mammogram demonstrates the patient's breast tissue is dense. Dense semaj ast tissue is very common and is not abnormal but dense breast tissue can make it harder to find canc er on a mammogram. Also, dense breast tissue may increase their breast cancer risk. This information about the result of the mammogram report was provided to the patient to raise their awareness. Use th is report when you speak with the patient about their risks for breast cancer, which includes their f amily history. At that time, you may recommend for more screening tests (Ultrasound or MRI) as they m ight be useful based on their risk. A negative radiographic report should not delay biopsy if a dominant or clinically suspicious mass is present. Up to ten percent of cancers are not identified on mammography. A negative report may reinforce clinical impression. Adenosis and dense breasts may obscure an underlying neoplasm. False positive reports average 6 to 10%.
== END ==
PROVIDERS: PCP Nurse Practitioner Adult Health; Visit Provider Nurse Practitioner Adult Health
DX: Z12.39 Encounter for other screening for malignant neoplasm of breast (principal); Z12.31 Encounter for screening mammogram for malignant neoplasm of breast; R92.343 Mammographic extreme density, bilateral breasts
CPT/HCPCS: 77063; 77067

== ENCOUNTER 2024-04-13 10:54 | Emergency (ER) | payer OTHER, SELFPAY ==
[2024-04-13 10:55] VITALS: BP 132/71; PULSE 68; RESP 15; TEMP 36.7; O2SAT 96
--- NOTE | 2024-04-13 11:03 | W.ED.GENAD ---
Discharge Plan Disposition Patient Disposition: Home Condition: Stable Discharge Details Clinical Impression: Fracture of base of fifth metatarsal bone of right foot Primary Care Provider: Meghan Arreola ED Provider: Adrián Griffin Home Meds and New Rx's Prescriptions: Continued naproxen 500 mg tablet 500 mg PO BID PRN (Reason: pain) Qty: 30 0RF cholecalciferol (vitamin D3) 1,000 UNIT tablet 1,000 unit PO DAILY calcium carbonate 600 MG tablet 1,200 mg PO DAILY Estring 2 mg (7.5 mcg /24 hour) ring 1 vag ring VG 90 DAYS Qty: 1 3RF Discharge Instructions Instructions: Foot Fracture ED Additional Instructions: You were seen in the emergency department for the fracture of the base of the right fifth metatarsal. Please use the cast boot that was provided for you, you may partially weight-bear as tolerated, you may use crutches if needed. Please rest, ice, compress and elevate the foot often, you may remove the cast boot as long as you keep the foot immobilized to ice it in the evenings or throughout the day. Please contact orthopedics for follow-up. Please use therapeutic dosing of Tylenol (acetamenophen) & Advil (ibuprofen) in an alternating fashion as follows: Take 1000mg of Tylenol every 6 hours without missing doses- that is 4 times per day. [facility] in between the Tylenol dosings, take 400-600mg of Advil also on a 6 hour schedule, that is also 4 times per day. The daily maximum dosing of Tylenol is 4000mg, and the daily maximum dosing of Advil is 2400mg. This is safe to do for weeks. Please note that some common cold medications & prescription pain medications may contain acetamenophen and you need to read OTC drug labels and factor that in to maximum daily dosings. Please return to the emergency department for signs of neurovascular compromise. Referrals: Meghan Arreola, [employer] [Primary Care Provider] - Discharge Data Discharge Date/Time-TO BE ENTERED AT DEPARTURE: 04/13/24 13:05 HPI General Date/Time Provider Initiated Documentation: 04/13/24 11:03. HPI Narrative: 64 year-old female presents to ED today by POV/ambulating with a chief complaint of R foot pain/swelling/bruising after rolling it yesterday. Patient is R-sided dominant. Quality described as not overly painful- localizes to the lateral mid-foot, denies inability to ambulate, does report pain after prolonged ambulation/standing, no radiation to numbness/tingling, erythema, proximal calf pain, numbness/tingling/weakness. Severity is described as mild to moderate. Palliating factors include nothing specific attempted. Provoking factors include nothing specific. Patient not anticoagulated. Related Data Home Medications ?Medication ?Instructions ?Recorded ?Confirmed cholecalciferol (vitamin D3) 25 1,000 unit PO DAILY 12/10/13 04/13/24 mcg (1,000 unit) tablet calcium carbonate 1,200 mg PO DAILY 02/06/18 04/13/24 naproxen 500 mg tablet 500 mg PO BID PRN pain #30 tabs 04/07/21 04/13/24 estradiol 2 mg (7.5 mcg/24 hour) 1 vag ring vaginal 90 DAYS #1 ea 01/14/23 04/13/24 vaginal ring (Estring) Previous Rx's ?Medication ?Instructions ?Recorded naproxen 500 mg tablet 500 mg PO BID PRN pain #30 tabs 04/07/21 estradiol 2 mg (7.5 mcg/24 hour) 1 vag ring vaginal 90 DAYS #1 ea 01/14/23 vaginal ring (Estring) Allergies Allergy/AdvReac Type Severity Reaction Status Date / Time No Known Allergies Allergy Verified 04/13/24 11:07 General Stated Complaint: Orthopedic JOCELIN: 4 Review of Systems All systems reviewed & are unremarkable except as noted in HPI and below Exam Narrative Exam Narrative: GENERAL APPEARANCE: Well-nourished, non-toxic, awake and alert, atraumatic, no acute distress. SKIN: Warm, pink, dry, intact, without rashes/lesions/ulcerations. HEAD: Normocephalic, atraumatic, normal hair distribution for gender/age. EYES: Normal conjunctiva, no exudates on lids/lashes. ENT: Nares patent, no circumoral cyanosis, no facial swelling NECK: Supple, trachea midline, painless cervical ROM. LUNGS/CHEST: Non-labored respirations, normal A/P diameter, symmetrical expansion, no chest wall deformity HEART (CV/PV): Regular rate, no peripheral edema, no JVD. ABDOMEN: Soft, non-distended, no guarding. MSK: Normal ROM, no swelling/deformity to bilateral UEs or LEs, moving all extremities without weakness, no cyanosis, spine midline without tenderness, normal curvature, bruising and tenderness to the lateral right midfoot, no overt lateral malleoli or crepitus, no fibular head tenderness, neurovascularly intact with dorsalis pedis pulse 2+, brisk capillary refill NEURO: Mental Status AAOx4 - alert to person, place, time, events No facial droop, no forehead involvement. Motor: No focal weakness - strength 5/5 in bilateral UEs and LEs, proximal and distal, symmetric. Sensory: sensation intact to light touch globally. Gait normal: patient ambulated without ataxia into ED room. PSYCH: euthymic, cooperative, pleasant, appropriate speech Course Vital Signs Vital signs: Vital Signs Temperature 36.7 C 04/13/24 10:55 Pulse 68 04/13/24 10:55 Respiratory Rate 15 04/13/24 10:55 Blood Pressure 132/71 04/13/24 10:55 Pulse Oximetry 96 04/13/24 10:55 Temperature 36.7 C 04/13/24 10:55 Pulse 68 04/13/24 10:55 Respiratory Rate 15 04/13/24 10:55 Respiratory Effort Normal 04/13/24 10:58 Blood Pressure 132/71 04/13/24 10:55 Blood Pressure Position Sitting 04/13/24 10:55 Pulse Oximetry 96 04/13/24 10:55 Oxygen Delivery Method Room Air 04/13/24 10:55 Oxygen Flow Rate 0 04/13/24 10:55 Medical Decision Making This dictation utilizes [id number] dictation software and may contain unedited grammatical errors. 64 year-old female presents to ED today by POV/ambulating with a chief complaint of R foot pain/swelling/bruising after rolling it yesterday. Patient is R-sided dominant. Quality described as not overly painful- localizes to the lateral mid-foot, denies inability to ambulate, does report pain after prolonged ambulation/standing, no radiation to numbness/tingling, erythema, proximal calf pain, numbness/tingling/weakness. Severity is described as mild to moderate. Palliating factors include nothing specific attempted. Provoking factors include nothing specific. Patients' medical history: Osteoporosis. Family and social history: Noncontributory. Pertinent exam findings / vital signs include bruising and tenderness to the lateral right midfoot, no overt lateral malleoli or crepitus, no fibular head tenderness, neurovascularly intact with dorsalis pedis pulse 2+, brisk capillary refill. Differential / pathologies of concern include fracture, sprain, contusion. Diagnostic studies of: -XR R ankle, R foot - shows minimally displaced fx of base of 5th MT. Interventions of: -Short boot and crutches. ED Course/Assessment/Plan: 64-year-old female rolled her right foot yesterday, has bruising to the dorsum of the foot and localizes tenderness to the lateral midfoot, x-ray shows a mildly displaced fracture of the base of the fifth metatarsal, has been bearing weight without issue, I did provide a short boot to aid in immobilization and crutches for any periods of prolonged standing or ambulation to partially weight-bear, counseled on RICE therapy and following up with orthopedics and therapeutic dosing of Tylenol and ibuprofen, strict return criteria for signs of neurovascular compromise. Findings not consistent with significantly displaced fracture, neurovascular compromise, inability weight-bear. Disposition of fracture of base of fifth metatarsal bone of right foot. Patient verbalized understanding of the plan and return to ED criteria and engaged in shared decision making. Medical Records Medical records reviewed: Yes I reviewed the patient's medical records. Imaging Data Radiologic Study: Attestation: I personally reviewed and interpreted this imaging study as follows: Imaging: X-Ray Radiologist's impression: EXAM: XR FOOT RT COMPLETE and XR ankle RT complete CLINICAL HISTORY: R foot pain, lateral MTs. TECHNIQUE: 2D digital imaging was performed of the right ankle and foot. Six images were obtained. AP, oblique and lateral views were obtained. COMPARISON: No priors for comparison. FINDINGS: BONES: There is an acute minimally displaced fracture involving the base of the right 5th metatarsal. No bony destructive lesion is seen. JOINTS: No dislocation present. The ankle joint is well maintained. SOFT TISSUE: Normal. IMPRESSION: Minimally displaced fracture through the base of the right 5th metatarsal. Quality:SDOH Health Related Social Needs: No Data to Display PFSH All Active Problems (Updated 04/13/24 @ 12:08 by SHELTON Luna) Fracture of base of fifth metatarsal bone of right foot (Acute) Genital lesion, female (Acute) Onychomycosis (Acute) Hip pain, chronic (Acute) L>R Hyperplastic colon polyp (Chronic) Osteoporosis (Chronic 02/25/14) 03/2013 DEXA T; -2.8 hip, -2.2 spine 12/2015 DEXA T; -2.6, -1.5 spine. Boniva initiated. 2020: repeat DEXA [facility] [place]o consult: 07/2021, Laci Mansfield Hormone replacement therapy (Chronic 10/26/15) started 05/2015 for osteoporosis. Pt intol of Aledronate. 09/2015 PMB despite dose adjustment. EMBx nl. 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 To be treated with prophylactic laser by [facility] [place] Sharda Paz 08/09/20 [facility] [place] - Dr Ayala Tubular adenoma of colon (07/09/14) Hormone replacement therapy started 05/2015 for osteoporosis. Pt intol of Aledronate. 09/2015 PMB despite dose adjustment. EMBx nl. Osteoporosis 2012 Pt had course ofAledronate, 05/2015. started HRT 2015 femoral neck T -2.6, spine T -1.5, L hip -2.4. 12/2015 Boniva initiated. Postmenopausal bleeding 09/17/2019 & 08/2015 while on HRT. No improvement with dose change. 08/2019 and 09/2015 EMBx proliferative. Benign. Surgical History H/O section x2; 10/27/96, 01/29/01 Family History Father , Multiple events leading to s/p fall & paralysis with c-spine infection Diabetes Heart disease Alcohol use disorder Hypertension Mother , Hiatal hernia with GIB; pernicious anemia Breast cancer Post-menopausal (dx'ed mid-70s); s/p surgical & RXT; in-situ Osteoporosis Diabetes Glaucoma Anxiety Depression Hypertension Daughter Age: 23 Asthma Maternal Grandfather Depression 05/10/21- great grandfather Asthma ~1961. Maternal Grandmother Heart disease Daughter Age: 26 Obesity Social History Smoking/Tobacco Use Status: Never Smoking risk assessment performed?: Yes Alcohol Intake: current Alcohol Intake frequency: 0-2 drinks per day Alcohol type: beer Drug use: Never Substance use type: does not use Counseling given: No Adopted: No Caregiver/Support person: No Foster care: No Household members: none Housing: house Number of Children: 2 Communication Needs: None Education Level: master's degree Do you need help understanding health information?: Rarely current occupation: RN. clinical consultant Sexually active: Yes Do you think of yourself as: straight/heterosexual Current gender identity: female What is your relationship status?: How often do you talk on the phone with friends or family?: twice per week How often do you get together with friends or relatives?: once per week How often do you attend voodoo or denominational services?: decline to answer Do you belong to any clubs or organized social groups?: no Panel score (0-1 are the most socially isolated patients): 1 What type of physical activity do you participate in: walking Duration: 15-30 minutes/day Frequency: daily Seatbelt use: always Helmet use: Yes Helmet use: always Drive intox or ride w/intox water truck driver: No Do you feel safe at home: Yes Do you feel safe in your relationship?: Yes Female Reproductive History Menstrual Menopause type: natural History History 3 Para 2 Hx # Term Pregnancies Multiple births Hx # Pregnancies Ectopic pregnancies AB induced Hx Number of Living Children AB spontaneous
--- NOTE | 2024-04-13 11:44 | DI.RAD_ITS ---
Exam(s) XR ANKLE RT COMPLETE XR FOOT RT COMPLETE EXAM: XR FOOT RT COMPLETE and XR ankle RT complete CLINICAL HISTORY: R foot pain, lateral MTs. TECHNIQUE: 2D digital imaging was performed of the right ankle and foot. Six images were obtained. AP, oblique and lateral views were obtained. COMPARISON: No priors for comparison. FINDINGS: BONES: There is an acute minimally displaced fracture involving the base of the right 5th metatarsal. No bony destructive lesion is seen. JOINTS: No dislocation present. The ankle joint is well maintained. SOFT TISSUE: Normal. IMPRESSION: Minimally displaced fracture through the base of the right 5th metatarsal. DATA REPOSITORY: RADIATION DOSE DELIVERED:
[2024-04-13 13:03] VITALS: PULSE 78; RESP 18; TEMP 36.6; O2SAT 97
== END 2024-04-13 13:05 | disposition home or self-care (01) ==
PROVIDERS: Emergency Provider Physician Assistant; PCP Nurse Practitioner Adult Health
DX: S92.351A Displaced fracture of fifth metatarsal bone, right foot, initial encounter for closed fracture (principal); X50.1XXA Overexertion from prolonged static or awkward postures, initial encounter; Y93.89 Activity, other specified
CPT/HCPCS: 99283; 73610; 73630

== ENCOUNTER 2024-05-01 11:36 | Outpatient (CLI) | payer OTHER, SELFPAY ==
--- NOTE | 2024-05-01 11:00 | DI.RAD_ITS ---
Exam(s) XR FOOT RT COMPLETE EXAM: XR FOOT RT COMPLETE CLINICAL HISTORY: worse pain at fx site- please compare imaging S92.290A. TECHNIQUE: 2D digital imaging was performed. Three views. COMPARISON: CR XR FOOT RT COMPLETE from 04/13/2024 CR XR ANKLE RT COMPLETE from 04/13/2024 FINDINGS: BONES: There is mildly increased separation at the previously noted fracture at the base of the 5th m etatarsal when compared with the prior exam. There is also a nondisplaced fracture at the lateral, p roximal corner of the cuboid. No bony destructive lesion is seen. JOINTS: No dislocation present. SOFT TISSUE: Normal. IMPRESSION: Mildly increased separation at the 5th metatarsal fracture. Nondisplaced fracture also seen at the proximal lateral corner of the cuboid. DATA REPOSITORY: RADIATION DOSE DELIVERED:
== END 2024-05-01 11:56 ==
LOC: DI 11:36
PROVIDERS: PCP Nurse Practitioner Adult Health; Visit Provider Nurse Practitioner Family
DX: S92.354A Nondisplaced fracture of fifth metatarsal bone, right foot, initial encounter for closed fracture (principal); X58.XXXD Exposure to other specified factors, subsequent encounter
CPT/HCPCS: 73630

== ENCOUNTER 2024-05-25 01:39 | Outpatient (CLI) | payer OTHER, SELFPAY ==
--- NOTE | 2024-05-25 09:36 | DI.RAD_ITS ---
Exam(s) XR FOOT RT COMPLETE EXAM: XR FOOT RT COMPLETE CLINICAL HISTORY: ? healing,f/u fx base of 5th metatarsal bone,S92.351G. TECHNIQUE: 2D digital imaging was performed of the right foot. Three images were obtained. AP, obl ique and lateral views were obtained. COMPARISON: CR XR FOOT RT COMPLETE from 05/01/2024 FINDINGS: BONES: There is again seen a fracture through the base of the 5th metatarsal bone. The fracture line is still visualized. It is unchanged compared to the prior examination. A CT scan might be useful to assess for any healing. The fracture of the cuboid is unchanged. No new fracture is seen. No [place] destructive lesion is seen. There is a small plantar calcaneal spur. JOINTS: No dislocation present. SOFT TISSUE: Normal. IMPRESSION: Stable alignment of the fracture through the base of the 5th metatarsal bone without evident signific ant interval healing. CT scan may be considered for further evaluation. DATA REPOSITORY: RADIATION DOSE DELIVERED:
== END 2024-05-25 01:59 ==
LOC: DI 01:39
PROVIDERS: PCP Nurse Practitioner Adult Health; Visit Provider Podiatrist
DX: S92.351D Displaced fracture of fifth metatarsal bone, right foot, subsequent encounter for fracture with routine healing (principal); X58.XXXD Exposure to other specified factors, subsequent encounter
CPT/HCPCS: 73630

== ENCOUNTER 2024-06-16 01:46 | Outpatient (CLI) | payer OTHER, SELFPAY ==
--- NOTE | 2024-06-16 07:15 | DI.RAD_ITS ---
Exam(s) XR FOOT RT COMPLETE EXAM: XR FOOT RT COMPLETE CLINICAL HISTORY: ? consolidation, fx base 5th metatarsal bone,s92.351G. TECHNIQUE: 2D digital imaging was performed of the right foot. Three images were obtained. AP, obl ique and lateral views were obtained. COMPARISON: CR XR FOOT RT COMPLETE from 05/25/2024 FINDINGS: BONES: There has been no change in alignment of the fracture through the base of the 5th metatarsal. Components of the fracture line are still visualized. There is some blurring of the fracture sugges ting some interval healing. No new fractures identified. No bony destructive lesion is seen. JOINTS: No dislocation present. Mild degenerative changes are seen in the foot particularly at the 1s t MTP joint characterized by joint space narrowing. SOFT TISSUE: Normal. IMPRESSION: There has been no change in alignment of the fracture involving the base of the right 5th metatarsal bone. There is some blurring of the fracture suggesting some interval healing. If further character ization is warranted, CT scan should be considered. DATA REPOSITORY: RADIATION DOSE DELIVERED:
== END 2024-06-16 02:06 ==
LOC: DI 01:46
PROVIDERS: PCP Nurse Practitioner Adult Health; Visit Provider Podiatrist
DX: S92.351D Displaced fracture of fifth metatarsal bone, right foot, subsequent encounter for fracture with routine healing (principal); X58.XXXD Exposure to other specified factors, subsequent encounter
CPT/HCPCS: 73630

== ENCOUNTER 2024-06-18 01:23 | Outpatient (CLI) | payer OTHER, SELFPAY ==
--- NOTE | 2024-06-18 06:30 | DI.DEXA_ITS ---
Exam(s) XR DEXA BONE DENSITY W/WO PENELOPE EXAM: XR DEXA BONE DENSITY W/WO PENELOPE CLINICAL HISTORY: interval assessment,ew fx, osteoporosis, m81.0 TECHNIQUE: COMPARISON: CR XR DEXA BONE DENSITY W/WO PENELOPE from 11/24/2021 FINDINGS: Lateral Spine Image: Unremarkable. No compression deformities identified. Left hip: Total T-Score: -2.3. This compares to -2.2 on the prior examination. Total Z-Score: -1.2 T- and Z-scores: Findings are consistent with osteopenia. Note is made of osteoporosis in the femora l neck with a T-score of -2.5. Lumbar Spine: Total T-Score: -1.9. This compares to -1.6 on the prior examination. Total Z-Score: -0.3 T- and Z-scores: Findings are consistent with osteopenia. Note is made of osteoporosis in the left forearm with a total T-score of -3.1 and a Z-score of -1.7. This compares with a total T-score of -2.5 on the prior examination. IMPRESSION: Osteoporosis is seen in the left femoral neck and the left forearm.
== END 2024-06-18 01:43 ==
LOC: DI 01:23
PROVIDERS: PCP Nurse Practitioner Adult Health; Visit Provider Nurse Practitioner Adult Health
DX: M81.0 Age-related osteoporosis without current pathological fracture (principal)
CPT/HCPCS: 77080

== ENCOUNTER 2024-07-22 00:49 | Outpatient (CLI) | payer OTHER, SELFPAY ==
--- NOTE | 2024-07-22 06:30 | DI.RAD_ITS ---
Exam(s) XR FOOT RT COMPLETE EXAM: XR FOOT RT COMPLETE CLINICAL HISTORY: ? Consolidation,FX BASE OF 5TH METATARSAL BONE RT FOOT,S92.351g. TECHNIQUE: 2D digital imaging was performed. COMPARISON: CR XR FOOT RT COMPLETE from 06/16/2024 FINDINGS: 3 views The appearance of the transverse fracture of the base of the 5th metatarsal is unchanged from 024. No additional fractures identified. No radiopaque foreign bodies. Osseous lesions. IMPRESSION: Unchanged radiographic appearance of the fracture site base of the 5th metatarsal DATA REPOSITORY: RADIATION DOSE DELIVERED:
== END 2024-07-22 01:09 ==
LOC: DI 00:49
PROVIDERS: PCP Nurse Practitioner Adult Health; Visit Provider Podiatrist
DX: S92.351S Displaced fracture of fifth metatarsal bone, right foot, sequela (principal); X58.XXXS Exposure to other specified factors, sequela
CPT/HCPCS: 73630

== ENCOUNTER 2024-07-23 03:54 | Outpatient (CLI) | payer OTHER, SELFPAY ==
[2024-07-23 08:38] LABS: Albumin 3.8 g/dL (3.4-5.0); BUN 17 mg/dL (7-18); CREATININE 0.8 mg/dL (0.55-1.02); Calcium 9.3 mg/dL (8.5-10.1); Estimated GFR 82.74 (mL/min/1.73m2); Vitamin D 25 Total 57.4 ng/mL (30-100)
[2024-07-23 18:56] LABS: Parathyroid Hormone,Intact 52.1 pg/mL (19.0-88.0)
[2024-07-25 10:38] LABS: Beta-CrossLaps (B-CTx) 256 pg/mL
== END 2024-07-23 03:55 | disposition home or self-care (01) ==
PROVIDERS: PCP Nurse Practitioner Adult Health; Visit Provider Internal Medicine
DX: M81.0 Age-related osteoporosis without current pathological fracture (principal)
CPT/HCPCS: 36415; 82306; 82523; 84520; 82040; 82310; 82565; 83970

== ENCOUNTER 2024-07-24 08:00 | Outpatient (REF) | payer OTHER, SELFPAY ==
[2024-07-24 16:35] LABS: Creatinine,Urine 55.89 mg/dL
[2024-07-24 16:41] LABS: Creatinine,24hr Ur 1.17 g/24hr (0.60-1.80); Total Volume 2150 ml
[2024-07-25 09:11] LABS: Calcium Urine 14.5 mg/dL (See Note); Calcium Urine 24 hr 312 mg/24hr (100-300); Timed Urine Volume 2150 mL
== END 2024-07-24 08:01 | disposition home or self-care (01) ==
LOC: LBN 08:00
PROVIDERS: PCP Nurse Practitioner Adult Health; Visit Provider Internal Medicine
DX: M81.0 Age-related osteoporosis without current pathological fracture (principal)
CPT/HCPCS: 81050; 82340; 82570

== ENCOUNTER 2024-10-27 00:09 | Outpatient (CLI) | payer OTHER, SELFPAY ==
--- NOTE | 2024-10-27 07:00 | DI.RAD_ITS ---
Exam(s) XR FOOT RT COMPLETE EXAM: XR FOOT RT COMPLETE CLINICAL HISTORY: ? Healing,DISPLACED FX 5TH METATARSAL BONE,S92.351g. TECHNIQUE: 2D digital imaging was performed of the right foot. Three images were obtained. AP, obl ique and lateral views were obtained. COMPARISON: CR XR FOOT RT COMPLETE from 07/22/2024 FINDINGS: BONES: There has been no change in alignment of the fracture of the base of the 5th metatarsal. The fracture line is less well visualized consistent with some interval healing. No bony destructive les ion is seen. JOINTS: No dislocation present. SOFT TISSUE: Normal. IMPRESSION: There has been continued healing of the 5th metatarsal fracture. DATA REPOSITORY: RADIATION DOSE DELIVERED:
== END 2024-10-27 00:29 ==
LOC: DI 00:10
PROVIDERS: PCP Nurse Practitioner Adult Health; Visit Provider Podiatrist
DX: S92.351G Displaced fracture of fifth metatarsal bone, right foot, subsequent encounter for fracture with delayed healing (principal)
CPT/HCPCS: 73630